=== PATIENT | male | born 1985 | race Caucasian/White ===

== ENCOUNTER → 2017-08-12 | Outpatient (CLI) | payer OTHER ==
[~2017-08-12] MED LIST: GADOBUTROL 7.5 MMOL/7.5 ML VIAL IV ONE; IOHEXOL 300 MG/ML 50 ML VIAL. INT ART ONE; LIDOCAINE 1% Multi-Dose 20 ML VIAL. ID ONE; NAPR-695 PO
--- NOTE | 2017-08-12 14:06 | KCIC ---
SHOULDER ARTHROGRAM RIGHT History: Right shoulder pain getting worse Technique: Patient was informed of the risks to include pain, infection, bleeding, nerve or blood vessel injury, allergic reaction. All questions were answered. Patient signed a written consent form for right shoulder injection prior to MRI. Patient was placed in supine position on the fluoroscopy table. The external skin site overlying right shoulder was prepped and draped in the usual sterile fashion. Betadine was utilized for cleansing solution. 1% lidocaine was utilized for local anesthesia to the depth of the bone. 22-gauge spinal needle was advanced under fluoroscopy to depth of the bone. Mixture of 5 cc lidocaine, 5 cc Omnipaque 300, 10 cc saline, 0.1 cc Gadavist were injected during fluoroscopic visualization. Needle was removed. There were no immediate complications. Bandage was applied. Fluoroscopy time 10 seconds, one fluoroscopic image Impression: 1. Apparently technically successful right shoulder injection prior to MRI, no immediate complication. Electronically signed by: Nav Ruiz MD (08/12/2017 2:02 PM) [facility]
--- NOTE | 2017-08-12 14:58 | KCIC ---
MR arthrogram of the right shoulder Indication: Right shoulder pain for one year. Worsening in the last month. Technique: Intra-articular contrast injected into the glenohumeral joint and is reported separately. Routine 4 plane sequences were obtained, including ABER positioning. Findings: Acromioclavicular joint: Mildly degenerative. Marrow edema within the anterior acromion and the outer clavicle Rotator cuff: No evidence of rotator cuff tear. No significant fluid or contrast accumulation in the subacromial subdeltoid bursa. Subdeltoid bursa:No significant fluid or contrast accumulation. Articular cartilage: Tiny cartilage fissure at the anterior glenoid on the single coronal slice, series 6, image 11, less than 1 mm wide. Labrum: Posteroinferior labral tear, from about 6:00 through 9:00. Biceps tendon: Intact Bones: No lesion or acute fracture. Soft tissue: No acute findings. Impression: 1. Posteroinferior labral tear. 2. Tiny submillimeter articular cartilage fissure or tear at the inferior glenoid. 3. Marrow edema at the acromioclavicular joint could be degenerative, versus repetitive stress injury or macro trauma. No joint separation. Electronically signed by: Jun Lincoln MD (08/12/2017 2:55 PM) [facility]
== END | disposition home or self-care (01) ==
LOC: KCIC 12:39
PROVIDERS: ATTEND Family Medicine
DX: S43.401A Unspecified sprain of right shoulder joint, initial encounter (principal); X58.XXXA Exposure to other specified factors, initial encounter; Y93.89 Activity, other specified; Y92.89 Other specified places as the place of occurrence of the external cause; Y99.8 Other external cause status
CPT/HCPCS: 73040; 73222; A9585; Q9967